=== PATIENT | female | born 2000 | race Caucasian/White ===

== ENCOUNTER 2020-12-29 00:08 | Emergency (ER) | payer OTHER, SELFPAY ==
[~2020-12-29] VITALS: Ht 162.6 cm; Wt 107.7 kg
[2020-12-29 02:15] VITALS: BP 129/76
[2020-12-29] MEDS ORDERED: ACETAMINOPHEN TAB 650MG DOSE (2X325MG) PO ONE (02:20)
== END 2020-12-29 02:27 | disposition home or self-care (01) ==
LOC: M ED 00:08
DX: J06.9 Acute upper respiratory infection, unspecified (principal)
CPT/HCPCS: 99283; U0003